=== PATIENT | male | born 1940 | race Caucasian/White ===

== ENCOUNTER 2020-05-29 11:51 | Inpatient (IN) | payer OTHER, MEDICARE ==
--- OUTSIDE RECORDS SUMMARY | 2020-05-29 11:53 | XMS REPORT | Summary of Care ---
:1940 Author Organization [facility] Neurology [place] Address [address] [place] [address]- Encounter HQ Nadiya(FIN) [id number] Date(s): 04/08/20 - 04/08/20 [facility] [address] [place] [address]- [phone] Discharge Disposition: Home or Self Care Attending Physician: Adolfo Norman MD Referring Physician: Venancio Rowe MD Vital Signs Most recent to oldest [Reference Range]: 1 Height 182.88 cm (04/08/20 10:25 AM) Temperature Oral [96.4-99.1 DegF] 97.1 DegF (04/08/20 10:25 AM) Blood Pressure [90-140/60-90 mmHg] 124/69 mmHg (04/08/20 10:25 AM) Respiratory Rate [14-20 BRMIN] 16 BRMIN (04/08/20 10:25 AM) Peripheral Pulse Rate [60-100 bpm] 50 bpm *LOW* (04/08/20 10:25 AM) Weight 94.545 kg (04/08/20 10:25 AM) Body Mass Index 28.27 m2 (04/08/20 10:25 AM) Problem List Condition Effective Dates Status Health Status Informant Dystonic tremor(Confirmed) Active Essential tremor(Confirmed) 03/30/15 Active HTN - Hypertension(Confirmed) Active Hyperlipidemia(Confirmed) Active Hypothyroidism(Confirmed) Active MCI (mild cognitive Active impairment)(Confirmed) Allergies, Adverse Reactions, Alerts Substance Reaction Severity Status iodine Moderate Active Medications No Known Medications Results No data available for this section Immunizations No data available for this section Procedures No data available for this section Social History Social History Type Response Smoking Status Former smoker; Type: Cigaret mari; 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
--- OUTSIDE RECORDS SUMMARY | 2020-05-29 11:53 | XMS REPORT | Continuity of Care Document ---
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, systemic N euro arterial (disorder) Hyperlipidemia Active Problem 05/23/2020 Misc her (disorder) Neuro Hypothyroidism Active Problem 05/23/2020 Misc her (disorder) Neuro Impaired cognition Active Problem 05/23/2020 [facility]ischer (finding) Neuro Medications Medication Details Route Status Patient Ordering Order Source Instructions Provider Date Donepezil 5 mg = 1 Active [facility] hydrochloride 5 tab, PO, 020 Neuro MG Oral Tablet Bedtime, # [Aricept] 30 tab, 3 Refill(s) primidone 50 mg 25 mg = Active [facility] oral tablet 0.5 tab, 019 Neuro PO, BID, # 90 tab, 0 Refill(s), Pharmacy: [id number] Allergies, Adverse Reactions, Alerts Substance Category Reaction Severity Reaction Status Date Comments S ource type Reported iodine Assertion Moderate Drug Active Misch er allergy Neuro Immunizations No Data Provided for This Section Results No Data Provided for This Section Pathology Reports No Data Provided for This Section Diagnostic Reports No Data Provided for This Section Consultation Notes No Data Provided for This Section Discharge Summaries No Data Provided for This Section History and Physicals No Data Provided for This Section Vital Signs Vital Sign Value Date Comments Source Systolic (mm Hg) 138 05/20/2020 [facility] Diastolic (mm Hg) 72 05/20/2020 [facility] Heart Rate 52 05/20/2020 [facility] Respitory Rate 16 05/20/2020 [facility] Height 177.8 cm 05/20/2020 [facility] Weight 94.545 05/20/2020 [facility] BMI Calculated 29.91 05/20/2020 [facility] Systolic (mm Hg) 124 04/08/2020 [facility] Diastolic (mm Hg) 69 04/08/2020 [facility] Heart Rate 50 04/08/2020 [facility] Respitory Rate 16 04/08/2020 [facility] Temperature Oral (F) 97.1 F 04/08/2020 [facility] Height 182.88 cm 04/08/2020 [facility] Weight 94.545 04/08/2020 [facility] BMI Calculated 28.27 04/08/2020 [facility] Systolic (mm Hg) 116 04/10/2019 [facility] Diastolic (mm Hg) 64 04/10/2019 [facility] Heart Rate 55 04/10/2019 [facility] Respitory Rate 16 04/10/2019 [facility] Height 177.8 cm 04/10/2019 [facility] Weight 88.636 04/10/2019 [facility] BMI Calculated 28.04 04/10/2019 [facility] Encounters Location Location Encounter Encounter Reason Attending ADM MT Stat us Source Details Type Number For Provider Date Date Visit Outpatient [id number] YADIRA 04/09 Active [facility] Outside [id number] 07/19 07/21 [facility] Medical /2018 Neuro [place] Records Outpatient [id number] Yadira 04/10 Active [facility] [place] [facility] Outpatient [id number] Yadira 04/10 04/11 [facility] [place] /2018 Neuro [place] Outpatient [id number] Yadira 04/08 Active [facility] Outpatient [id number] Yadira 04/08 Active [facility] [place] [facility] Ambulatory [id number] Venancio 04/08 04/08 [facility] Pre-Reg [place] /2019 Neuro [place] [facility] Outpatient [id number] Venancio 04/08 04/09 [facility] [place] /2019 Neuro [place] Outpatient [id number] Yadira 05/20 Active [facility] Outpatient [id number] Yadira 05/20 05/21 [facility] [place] /2019 Neuro [place] Outpatient [id number] Yadira 08/19 Active [facility] Procedures No Data Provided for This Section Assessment and Plan No Data Provided for This Section Plan of Care No Data Provided for This Section Social History Social History Date Source Social History TypeResponse 05/20/2020 [facility] Smoking Status Former smoker; Type: Cigarettes; Exposur e to Tobacco Smoke None; Cigarette Smoking Last 365 Days No; Reg Smoking Cessation Counseling No1 entered on: 05/20/20 Flynn moreno 40yrs ago Family History No Data Provided for This Section Advance Directives No Data Provided for This Section Functional Status No Data Provided for This Section
--- OUTSIDE RECORDS SUMMARY | 2020-05-29 11:54 | XMS REPORT | Summary of Care ---
:1940 Author Organization [facility] Neurology [place] Address [address] [place] [address]- Encounter HQ Nadiya(FIN) [id number] Date(s): 05/20/20 - 05/20/20 [facility] [address] [place] [address]- [phone] Discharge Disposition: Home or Self Care Attending Physician: Adolfo Norman MD Referring Physician: Adolfo Norman MD Vital Signs Most recent to oldest [Reference Range]: 1 Height 177.8 cm (05/20/20 1:32 PM) Blood Pressure [90-140/60-90 mmHg] 138/72 mmHg (05/20/20 1:32 PM) Respiratory Rate [14-20 BRMIN] 16 BRMIN (05/20/20 1:32 PM) Peripheral Pulse Rate [60-100 bpm] 52 bpm *LOW* (05/20/20 1:32 PM) Weight 94.545 kg (05/20/20 1:32 PM) Body Mass Index 29.91 m2 (05/20/20 1:32 PM) Problem List Condition Effective Dates Status Health Status Informant Dystonic tremor(Confirmed) Active Essential tremor(Confirmed) 03/30/15 Active HTN - Hypertension(Confirmed) Active Hyperlipidemia(Confirmed) Active Hypothyroidism(Confirmed) Active MCI (mild cognitive Active impairment)(Confirmed) Allergies, Adverse Reactions, Alerts Substance Reaction Severity Status iodine Moderate Active Medications Aricept 5 mg oral tablet 5 mg = 1 tab, PO, Bedtime, # 30 tab, 3 Refill(s) Start Date: 05/20/20 Stop Date: 09/17/20 Status: Ordered Results No data available for this section Immunizations No data available for this section Procedures No data available for this section Social History Social History Type Response Smoking Status Former smoker; Type: Cigaret mari; 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
[2020-05-29 12:43] LABS: Absolute Lymphocytes (CBC) 1.6 K/uL (0.7-4.9); Basophils % 0.9 % (0-1.3); Hematocrit 41.3 % (39.6-49.0); Lymphocytes % 31.2 % (15.3-44.8); MPV 9.1 fL (7.6-11.3); RBC Red Blood Cell Count 4.32 M/uL (4.33-5.43)
[2020-05-29 12:45] LABS: Protime INR 0.97
[2020-05-29 13:00] LABS: BUN Blood Urea Nitrogen 16 mg/dL (7-18); Bicarbonate 29 mmol/L (21-32); Glucose Level 110 mg/dL (74-106); NT PRO-BNP 183 pg/mL (<450); Potassium 4.4 mmol/L (3.5-5.1); Sodium Level 142 mmol/L (136-145); Troponin (Emerg Dept Use Only) < 0.02 ng/mL (0.0-0.045)
--- NOTE | 2020-05-29 13:29 | RAD REPORT ---
EXAM DESCRIPTION: Peter Single View05/29/2020 12:52 pm CLINICAL HISTORY: Chest pain COMPARISON: 2015 FINDINGS: The lungs appear clear of acute infiltrate. The heart is normal size IMPRESSION: No acute abnormalities displayed
[2020-05-29] MEDS ORDERED: ASPIRIN 81 MG CHEWABLE TABLET ONE (14:05)
--- NOTE | 2020-05-29 14:18 | EDPHYS ---
Physician Documentation [facility] Name: Porfirio Ospina Age: 79 yrs Sex: Male : 1940 Arrival Date: 05/29/2020 Time: 11:52 Bed 7 Private MD: Venancio Rowe ED Physician Rigo Neely HPI: 05/29 14:03 This 79 yrs old Male presents to ER via Ambulatory with complaints of Chest rn Pain, Chest Pressure. 14:03 The patient or guardian reports chest pain that is located primarily in the substernal rn area. Onset: this morning. The pain does not radiate. Associated signs and symptoms: Pertinent positives: None. Pertinent negatives: abdominal pain, cough, diaphoresis, dizziness, lower extremity swelling, lightheadedness, nausea, near syncope, palpitations, recent travel, shortness of breath, syncope, vomiting. The chest pain is described as a heaviness, a pressure. Duration: The patient or guardian reports multiple episodes, that have now resolved. Modifying factors: The symptoms are alleviated by nothing. the symptoms are aggravated by nothing. Severity of pain: At its worst the pain was moderate in the emergency department the pain has resolved. It is unknown whether or not the patient has had similar symptoms in the past. Reports chest pain, 2 episodes, began early this morning, lasts approx 10-15 min, went away on its own, then came back for another 10 min. NO fever/cough/sob/abd pain/hemoptysis. . Historical: - Allergies: 12:03 Iodine; iw 12:03 tramadol; iw - Home Meds: 12:03 lisinopril 20 mg Oral tab 1 tab once daily [Active]; allopurinol 300 mg Oral tab 1 tab iw once daily [Active]; clopidogrel 75 mg oral tab 1 tab once daily [Active]; metoprolol tartrate 25 mg Oral tab 1 tab once daily [Active]; escitalopram oxalate 10 mg oral tab 1 tab once daily [Active]; levothyroxine 112 mcg tab 1 tab once daily [Active]; primidone 50 mg Oral tab [Active]; atorvastatin 40 mg oral tab 1 tab once daily [Active]; aspirin 81 mg Oral TbEC 1 tab once daily [Active]; donepezil 5 mg oral TbDL 1 tab once daily [Active]; - PMHx: 12:03 Myocardial infarction; iw - PSHx: 12:03 Heart stents; Hernia repair; iw - Immunization history:: Adult Immunizations up to date. - Social history:: Smoking status: Patient/guardian denies using tobacco, but has a distant history of tobacco abuse. - Family history:: not pertinent. - Hospitalizations: : No recent hospitalization is reported. ROS: 14:03 Constitutional: Negative for fever, chills, and weight loss, Eyes: Negative for injury, rn pain, redness, and discharge, Neck: Negative for injury, pain, and swelling, Cardiovascular: Negative for palpitations, and edema, Respiratory: Negative for shortness of breath, cough, wheezing, and pleuritic chest pain, Abdomen/GI: Negative for abdominal pain, nausea, vomiting, diarrhea, and constipation, Back: Negative for injury and pain, : Negative for injury, bleeding, discharge, and swelling, MS/Extremity: Negative for injury and deformity, Skin: Negative for injury, rash, and discoloration, Neuro: Negative for headache, weakness, numbness, tingling, and seizure. Exam: 14:03 Constitutional: This is a well developed, well nourished patient who is awake, alert, rn and in no acute distress. Head/Face: Normocephalic, atraumatic. Cardiovascular: Bradycardic, Regular rhythm. No pulse deficits. Respiratory: Speaking full sentences, unlabored. Abdomen/GI: soft, non-tender Skin: Warm, dry MS/ Extremity: Pulses equal, no cyanosis. Neurovascular intact. Full, normal range of motion. Equal circumference. Neuro: Awake and alert, GCS 15 Vital Signs: 11:58 BP 152 / 91; Pulse 56; Resp 16; Temp 98.1; Pulse Ox 98% on R/A; Weight 92.99 kg; Height iw 5 ft. 11 in. (180.34 cm); 12:38 BP 134 / 77; Pulse 66; Resp 17 S; Pulse Ox 100% on R/A; jd3 13:38 BP 127 / 74; Pulse 52; Resp 19 S; Pulse Ox 98% on R/A; jd3 14:15 BP 159 / 77; Pulse 62; Resp 13; Pulse Ox 96% ; bp 16:14 BP 121 / 70; Pulse 62; Resp 17; Pulse Ox 99% ; rb3 11:58 Body Mass Index 28.59 (92.99 kg, 180.34 cm) iw MDM: 12:16 Patient medically screened. rn 14:14 Differential diagnosis: abnormal EKG, acute myocardial infarction, coronary artery rn disease costochondritis, esophagitis, gastritis, gastroesophageal reflux disease (GERD), pleurisy, pneumonia, pneumothorax, stable angina, unstable angina. The patient was given aspirin in the Emergency Department. Data reviewed: vital signs, nurses notes, lab test result(s), EKG, radiologic studies, plain films, and as a result, I will admit patient. Counseling: I had a detailed discussion with the patient and/or guardian regarding: the historical points, exam findings, and any diagnostic results supporting the discharge/admit diagnosis, lab results, radiology results, the need for further work-up and treatment in the hospital. Response to treatment: the patient's symptoms have resolved after treatment, the patient's condition has returned to base line, and as a result, I will admit patient. Admission orders: after a detailed discussion of the patient's condition and case, the admit orders are written by me. Special discussion:. ED course: Consulted with Dr. Davis, will consult when admitted. Admitted to Dr. Malave. . 05/29 12:27 Order name: Basic Metabolic Panel; Complete Time: 13:10 rn 05/29 12:27 Order name: CBC with Diff; Complete Time: 13:10 rn 05/29 12:27 Order name: NT PRO-BNP; Complete Time: 13:10 rn 05/29 12:27 Order name: PT-INR; Complete Time: 13:10 rn 05/29 12:27 Order name: Troponin (emerg Dept Use Only); Complete Time: 13:10 rn 05/29 12:27 Order name: XRAY Chest (1 view); Complete Time: 13:30 rn 05/29 12:27 Order name: EKG; Complete Time: 12:27 rn 05/29 12:27 Order name: Cardiac monitoring; Complete Time: 12:37 rn 05/29 12:27 Order name: EKG - Nurse/Tech; Complete Time: 12:38 rn 05/29 12:27 Order name: IV Saline Lock; Complete Time: 12:38 rn 05/29 12:27 Order name: Labs collected and sent; Complete Time: 12:38 rn 05/29 12:27 Order name: O2 Per Protocol; Complete Time: 12:38 rn 05/29 12:27 Order name: O2 Sat Monitoring; Complete Time: 12:38 rn Administered Medications: 13:55 Drug: Aspirin Chewable Tablet 324 mg Route: PO; jd3 Disposition: 05/29/20 14:17 Hospitalization ordered by Eze Malave for Observation. Preliminary diagnosis is Chest pain, unspecified. - Bed requested for Telemetry/MedSurg (observation). - Status is Observation. bp - Condition is Stable. - Problem is new. - Symptoms have improved. Signatures: Dispatcher [employer] EDMS Marie Diop RN RN iw Nieto, Roman, MD MD rn Davies, Jonathon, RN RN jd3 Aguilar, Jose, RN RN ja1 Peltier, Brian RN RN bp Corrections: (The following items were deleted from the chart) 14:12 14:03 Constitutional: Negative for fever, chills, and weight loss, Eyes: Negative for rn injury, pain, redness, and discharge, Neck: Negative for injury, pain, and swelling, Cardiovascular: Negative for palpitations, and edema, Respiratory: Negative for shortness of breath, cough, wheezing, and pleuritic chest pain, Abdomen/GI: Negative for abdominal pain, nausea, vomiting, diarrhea, and constipation, Back: Negative for injury and pain, : Negative for injury, bleeding, discharge, and swelling, MS/Extremity: Negative for injury and deformity, Skin: Negative for injury, rash, and discoloration, Neuro: Negative for headache, weakness, numbness, tingling, and seizure, rn 15:36 14:17 Hospitalization Ordered by Eze Malave DO for Observation. Preliminary ja1 diagnosis is Chest pain, unspecified. Bed requested for Telemetry/MedSurg (observation). Status is Observation. Condition is Stable. Problem is new. Symptoms have improved. rn 17:38 15:36 05/29/2020 14:17 Hospitalization Ordered by Eze Malave DO for Observation. bp Preliminary diagnosis is Chest pain, unspecified. Bed requested for Telemetry/MedSurg (observation). Status is Observation. Condition is Stable. Problem is new. Symptoms have improved. ja1
--- NOTE | 2020-05-29 14:18 | ER ---
Nurse's Notes [facility] Name: Porfirio Ospina Age: 79 yrs Sex: Male : 1940 Arrival Date: 05/29/2020 Time: 11:52 Bed 7 Private MD: Venancio Rowe Diagnosis: Chest pain, unspecified Presentation: 05/29 11:58 Chief complaint: Patient states: chest pressure started at 0630 this morning , iw intermittent, lasts approx 10 minutes. Coronavirus screen: At this time, the client does not indicate any symptoms associated with coronavirus-19. Ebola Screen: Patient negative for fever greater than or equal to 101.5 degrees Fahrenheit, and additional compatible Ebola Virus Disease symptoms Patient denies exposure to infectious person. Patient denies travel to an Ebola-affected area in the 21 days before illness onset. No symptoms or risks identified at this time. Initial Sepsis Screen: Does the patient meet any 2 criteria? No. Patient's initial sepsis screen is negative. Does the patient have a suspected source of infection? No. Patient's initial sepsis screen is negative. Risk Assessment: Do you want to hurt yourself or someone else? Patient reports no desire to harm self or others. Onset of symptoms was May 29, 2020. 11:58 Method Of Arrival: Ambulatory iw 11:58 Acuity: DAMON 3 iw Historical: - Allergies: 12:03 Iodine; iw 12:03 tramadol; iw - Home Meds: 12:03 lisinopril 20 mg Oral tab 1 tab once daily [Active]; allopurinol 300 mg Oral tab 1 tab iw once daily [Active]; clopidogrel 75 mg oral tab 1 tab once daily [Active]; metoprolol tartrate 25 mg Oral tab 1 tab once daily [Active]; escitalopram oxalate 10 mg oral tab 1 tab once daily [Active]; levothyroxine 112 mcg tab 1 tab once daily [Active]; primidone 50 mg Oral tab [Active]; atorvastatin 40 mg oral tab 1 tab once daily [Active]; aspirin 81 mg Oral TbEC 1 tab once daily [Active]; donepezil 5 mg oral TbDL 1 tab once daily [Active]; - PMHx: 12:03 Myocardial infarction; iw - PSHx: 12:03 Heart stents; Hernia repair; iw - Immunization history:: Adult Immunizations up to date. - Social history:: Smoking status: Patient/guardian denies using tobacco, but has a distant history of tobacco abuse. - Family history:: not pertinent. - Hospitalizations: : No recent hospitalization is reported. Screenin:15 Abuse screen: Denies threats or abuse. Nutritional screening: No deficits noted. jd3 Tuberculosis screening: No symptoms or risk factors identified. Fall Risk Ambulatory Aid- None/Bed Rest/Nurse Assist (0 pts). Gait- Normal/Bed Rest/Wheelchair (0 pts) Mental Status- Oriented to own ability (0 pts). Total Jose Fall Scale indicates No Risk (0-24 pts). Assessment: 12:14 General: Appears in no apparent distress. uncomfortable, Behavior is calm, cooperative, jd3 appropriate for age. Pain: Complains of pain in chest Pain does not radiate. Quality of pain is described as pressure, Pain began suddenly. Neuro: Level of Consciousness is awake, alert, obeys commands, Oriented to person, place, time, situation. Cardiovascular: Reports chest pain, Capillary refill < 3 seconds Patient's skin is warm and dry. Rhythm is irregular. Respiratory: Airway is patent Respiratory effort is even, unlabored, Respiratory pattern is regular, symmetrical, Denies cough, shortness of breath. GI: No signs and/or symptoms were reported involving the gastrointestinal system. : No signs and/or symptoms were reported regarding the genitourinary system. EENT: No signs and/or symptoms were reported regarding the EENT system. Derm: Skin is intact, Skin is dry, Skin is normal, Skin temperature is warm. Musculoskeletal: Circulation, motion, and sensation intact. Range of motion: intact in all extremities. 12:38 Reassessment: Patient appears in no apparent distress at this time. No changes from jd3 previously documented assessment. Patient and/or family updated on plan of care and expected duration. Pain level reassessed. Patient is alert, oriented x 3, equal unlabored respirations, skin warm/dry/pink. 13:38 Reassessment: Patient appears in no apparent distress at this time. No changes from jd3 previously documented assessment. Patient and/or family updated on plan of care and expected duration. Pain level reassessed. Patient is alert, oriented x 3, equal unlabored respirations, skin warm/dry/pink. 14:15 Reassessment: Patient appears in no apparent distress at this time. Patient and/or bp family updated on plan of care and expected duration. Pain level reassessed. Patient is alert, oriented x 3, equal unlabored respirations, skin warm/dry/pink. RECD REPORT FROM SANDRINE BAKER. PT TBA FOR CHEST PAIN. 14:26 Reassessment: DR VALENCIA AT B/S FOR ADMIT. bp 16:16 Reassessment: Tried to call report, unable to give report at this time because dariana Medel RN is discharging another pt. Vital Signs: 11:58 BP 152 / 91; Pulse 56; Resp 16; Temp 98.1; Pulse Ox 98% on R/A; Weight 92.99 kg; Height iw 5 ft. 11 in. (180.34 cm); 12:38 BP 134 / 77; Pulse 66; Resp 17 S; Pulse Ox 100% on R/A; jd3 13:38 BP 127 / 74; Pulse 52; Resp 19 S; Pulse Ox 98% on R/A; jd3 14:15 BP 159 / 77; Pulse 62; Resp 13; Pulse Ox 96% ; bp 16:14 BP 121 / 70; Pulse 62; Resp 17; Pulse Ox 99% ; rb3 11:58 Body Mass Index 28.59 (92.99 kg, 180.34 cm) iw ED Course: 11:52 Patient arrived in ED. ag5 11:52 Venancio Rowe MD is Private Physician. ag5 12:00 Triage completed. iw 12:04 Simeon Reis, RN is Primary Nurse. jd3 12:13 Arm band placed on. jd3 12:13 EKG done, by ED staff, reviewed by Rigo Neely MD. Patient maintains SpO2 saturation jd3 greater than 95% on room air. 12:16 Rigo Neely MD is Attending Physician. rn 12:16 Patient has correct armband on for positive identification. Placed in gown. Bed in low jd3 position. Call light in reach. Side rails up X 1. Adult w/ patient. conveyor monitor on. Pulse ox on. NIBP on. 12:22 ED physician to see patient. jd3 12:38 Inserted saline lock: 20 gauge in right antecubital area, using aseptic technique. jd3 Blood collected. 12:48 XRAY Chest (1 view) In Process Unspecified. EDMS 13:38 ED physician to see patient. jd3 13:55 Warm blanket given. Diet tray given. PO fluids given. jd3 14:17 Eze Valencia DO is Hospitalizing Provider. rn 14:22 Report given to Venancio BAKER. jd3 17:37 No provider procedures requiring assistance completed. Patient admitted, IV remains in bp place. Administered Medications: 13:55 Drug: Aspirin Chewable Tablet 324 mg Route: PO; jd3 Outcome: 14:17 Decision to Hospitalize by Provider. rn 17:15 Admitted to Med/surg accompanied by tech, via wheelchair, with chart, Report called to bp ILIANA BAKER 17:15 Condition: stable bp 17:15 Instructed on the need for admit. 17:38 Patient left the ED. bp Signatures: Dispatcher [employer] EDMarie Coppola, RN OLIVIA iw Rigo Neely MD MD rn Davies, Jonathon, RN RN jVenancio Atkins RN RN bp Gaskin, Ajare ag5 Chelsea Lewis, RN RN rb3 Corrections: (The following items were deleted from the chart) 12:38 12:14 Pain: Complains of pain in chest Pain does not radiate. Pain began suddenly, jd3 jd3 14:23 14:00 Reassessment: Patient appears in no apparent distress at this time. Patient bp and/or family updated on plan of care and expected duration. Pain level reassessed. Patient is alert, oriented x 3, equal unlabored respirations, skin warm/dry/pink. RECD REPORT FROM SANDRINE BAKER. PT TBA FOR CHEST PAIN bp 14:23 14:00 BP 159 / 77; Pulse 62bpm; Resp 13bpm; Pulse Ox 96%; bp bp
--- NOTE | 2020-05-29 15:44 | P.HP ---
Certification for Inpatient Patient admitted to: Observation With expected LOS: <2 Midnights Patient will require the following post-hospital care: None Practitioner: I am a practitioner with admitting privileges, knowledge of patient current condition, hospital course, and medical plan of care. Services: Services provided to patient in accordance with Admission requirements found in Title 42 Section 412.3 of the Code of Federal Regulations Patient History Date of Service: 05/29/20 Primary Care Provider: Dr. Rowe; Cardiology-Dr. Davis Reason for admission: Chest pain, shortness of breath History of Present Illness: 79-year-old male with history of CAD, hypertension, hypothyroidism, hyperlipidemia and dementia. Patient presented to the emergency room with chest pain. Chest pain occurred twice this morning. Each lasted several min. It was mainly to the substernal region. He describes the chest pain more of a pressure-like sensation. No radiation pain noted. He had some shortness of breath. He came to the ER for further evaluation. In the ER patient evaluated. No significant ST changes noted. CBC unremarkable. Sodium 142, potassium 4.4. BUN is 16, GFR 64. Glucose 110. Troponin unremarkable. Due to his multiple risk factors the patient was admitted for further evaluation and treatment. When I saw the patient ER, he appeared stable. Patient denies any tobacco history. Drinks on occasion. Allergies iodine Allergy (Unknown, Verified 01/31/16 10:29) swelling to throat tramadol Allergy (Unverified 09/14/17 15:00) Unknown Home medications list reviewed: Yes Home Medications: Amlodipine [Norvasc] 5 mg PO DAILY 07/25/15 Aspirin Chewable [Aspirin Chewable*] 81 mg PO DAILY 07/25/15 Atorvastatin Calcium [Lipitor] 40 mg PO DAILY 07/25/15 Clopidogrel Bisulfate [Plavix] 75 mg PO DAILY 07/25/15 Folic Acid 1 mg PO DAILY 07/25/15 Latanoprost Ophth [Xalatan 0.005% Ophth [place]] 25 drops OPTH DAILY 07/25/15 Levothyroxine [Synthroid] 112 mcg PO [id number] 07/25/15 Metoprolol Tartrate [Lopressor] 25 mg PO DAILY 07/25/15 [place]-3 Fatty Acids [Fish Oil] 500 mg PO DAILY 07/25/15 Primidone [Mysoline] 50 mg PO BID 07/25/15 Timolol Maleate [Istalol] 1 drop EACH EYE DAILY 07/25/15 Ubidecarenone [Co Q-10] 100 mg PO DAILY 07/25/15 allopurinoL [Zyloprim] 300 mg PO DAILY 07/25/15 lisinopriL [Prinivil] 20 mg PO DAILY 07/25/15 - Past Medical/Surgical History Diabetic: No -: CAD with prior stents -: HTN -: Hyperlipidemia -: Hypothyroidism -: Dementia -: Stents -: Hernia Repair Psychosocial/ Personal History: Patient is - Family History Family History: Reviewed- Non-Contributory - Social History Smoking Status: Never smoker Alcohol use: Yes CD- Drugs: No Caffeine use: Yes Place of Residence: Home Review of Systems General: As per HPI Eyes: Unremarkable ENT: Unremarkable Respiratory: Shortness of Breath, As per HPI Cardiovascular: Chest Pain, As per HPI Gastrointestinal: Unremarkable Genitourinary: Unremarkable Musculoskeletal: Unremarkable Integumentary: Unremarkable Neurological: Unremarkable Lymphatics: Unremarkable Physical Examination - Physical Exam General: Alert, In no apparent distress, Oriented x3, Cooperative HEENT: Atraumatic, Normocephalic, Mucous membr. moist/pink Neck: Supple Respiratory: Clear to auscultation bilaterally, Normal air movement Cardiovascular: Normal pulses, Regular rate/rhythm Gastrointestinal: Normal bowel sounds, Soft and benign, Non-distended, No tenderness, No masses, No rebound, No guarding Musculoskeletal: No erythema, No tenderness, No warmth Integumentary: No tenderness/swelling, No erythema, No warmth, No cyanosis Neurological: Normal speech, Normal strength at 5/5 x4 extr, Normal tone, Normal affect - Studies Laboratory Data (last 24 hrs) 05/29/20 12:34: PT 11.4, INR 0.97 05/29/20 12:34: WBC 5.0, Hgb 13.6, Hct 41.3, Plt Count 188 05/29/20 12:34: Sodium 142, Potassium 4.4, BUN 16, Creatinine 1.10, Glucose 110 H Assessment and Plan - Plan Impression: Chest pain with shortness of breath with history of CAD and prior stents Hypertension Hypothyroidism Hyperlipidemia Dementia Depression with anxiety Plan: Chest pain with shortness of breath with history of CAD and prior stents: Patient will be admitted for further evaluation and treatment. Continue telemetry and monitor cardiac enzymes. Cardiology consulted to further evaluate. Patient has seen Cardiology as an outpatient. Continue aspirin, Plavix, statin and blood pressure medication. Will provide Lovenox for DVT prophylaxis. Await further recommendations from cardiology. Anticipate improvement and possible discharge tomorrow if workup unremarkable. Hypertension: Continue lisinopril. Will monitor and adjust appropriately. Hypothyroidism: Restart home medication. Will check tsh and free T4. Hyperlipidemia: Restart home medication. Check fasting lipid panel. Dementia: Restart home medication. Depression with anxiety: Restart home medication. Discharge Plan: Home Plan to discharge in: 24 Hours - Advance Directives Does patient have a Living Will: Yes Does patient have a Durable POA for Healthcare: Yes - Code Status/Comfort Care Code Status Assessed: Yes (Patient full code) Time Spent Managing Pts Care (In Minutes): 55
[2020-05-29] MEDS ORDERED: ONDANSETRON 4 MG/2 ML VIAL IV PRN (17:12)
[2020-05-29 17:55] VITALS: BMI 28.5
[2020-05-29 19:52] LABS: CKMB Creatine Kinase MB 1.9 ng/mL (0.3-3.6); Creatine Phosphokinase 178 U/L (39-308); Troponin I < 0.02 ng/mL (0.0-0.045)
[2020-05-29] MEDS: ATORVASTATIN 40 MG TAB PO SCH (21:36)
[2020-05-29] MEDS: DONEPEZIL HCL 5 MG TAB PO SCH (21:37)
[2020-05-30 04:21] LABS: CKMB Creatine Kinase MB 1.4 ng/mL (0.3-3.6); Creatine Phosphokinase 151 U/L (39-308); Troponin I < 0.02 ng/mL (0.0-0.045)
[2020-05-30] MEDS: METOPROLOL TAR 25 MG TAB PO SCH (05:37)
[2020-05-30] MEDS: LEVOTHYROXINE SOD 0.112 MG TAB PO SCH (05:38)
[2020-05-30 06:35] LABS: Magnesium 2.2 mg/dL (1.8-2.4); Thyroid Stimulating Hormone 2.63 uIU/mL (0.360-3.740)
--- NOTE | 2020-05-30 07:42 | EKG ---
Test Date: 2020-05-29 Test Time: 12:09:42 Linen Room Houseperson: LU MEASUREMENT RESULTS: Intervals: Rate: 54 IA: 198 QRSD: 96 QT: 422 QTc: 400 [place]: P: 35 IA: 198 QRS: -18 T: 21 INTERPRETIVE STATEMENTS: Sinus bradycardia with premature atrial complexes Cannot rule out Anterior infarct, age undetermined Abnormal ECG Compared to ECG 12/24/2015 16:47:01 Atrial premature complex(es) now present Myocardial infarct finding now present Electronically Signed On 05-30-20 07:40:39 [facility] by Daniel Davis
--- NOTE | 2020-05-30 08:54 | P.PN ---
Subjective Date of Service: 05/30/20 Primary Care Provider: Dr. Rowe; Cardiology-Dr. Davis Chief Complaint: Chest pain, shortness of breath Subjective: Other (Patient improved. Chest pain also improved. Patient with dementia.) Physical Examination - Vital Signs Temperature: 97.5 F Blood Pressure: 131/64 Pulse: 58 Respirations: 16 Pulse Ox (%): 98 - Physical Exam General: Alert, In no apparent distress, Disheveled HEENT: Atraumatic Neck: Supple Respiratory: Clear to auscultation bilaterally, Normal air movement Cardiovascular: Normal pulses, Regular rate/rhythm Gastrointestinal: Normal bowel sounds, Soft and benign, Non-distended, No tenderness, No masses, No rebound, No guarding Musculoskeletal: No erythema, No tenderness, No warmth Integumentary: No tenderness/swelling, No erythema, No warmth, No cyanosis Neurological: Normal speech, Normal strength at 5/5 x4 extr, Normal tone, Dementia - Studies Laboratory Data (last 24 hrs) 05/29/20 12:34: PT 11.4, INR 0.97 05/29/20 12:34: WBC 5.0, Hgb 13.6, Hct 41.3, Plt Count 188 05/29/20 12:34: Sodium 142, Potassium 4.4, BUN 16, Creatinine 1.10, Glucose 110 H Medications List Reviewed: Yes Assessment & Plan Discharge Plan: Home Plan to discharge in: 24 Hours Physician Review Additional Text: Impression: Chest pain with shortness of breath secondary to unstable angina complicated with history of CAD and prior stents Hypertension Hypothyroidism Hyperlipidemia Dementia Depression with anxiety Plan: Chest pain with shortness of breath secondary to unstable angina complicated with history of CAD and prior stents: Case discussed in detail with cardiology. Due to his dementia it is difficult to get an accurate history. Cardiology believes chest pain related to unstable angina. Previous records reviewed. Cardiology desires heart catheterization to further evaluate and assess especially with his significant CAD history and prior stents. Continue to monitor closely. Continue aspirin, Plavix, statin medication and blood pressure medication control. Will keep the patient NPO after midnight in preparation for heart catheterization tomorrow. Will discuss with family. Continue DVT prophylaxis-Lovenox. I will turn the service over to the hospitalist team tomorrow. I will go over the plan of care with him. Hypertension: Continue with medication. Will monitor and adjust appropriately. Hypothyroidism: Continue medication. Tsh within normal range. Hyperlipidemia: Continue medication. LDL 27. Dementia: Continue medication. Depression with anxiety: Continue medication Time Spent Managing Pts Care (In Minutes): 55
[2020-05-30] MEDS ORDERED: ENOXAPARIN 40 MG/0.4 ML SQ SCH (09:00)
[2020-05-30] MEDS: COENZYME Q10- 200 MG CAP PO SCH (09:09)
[2020-05-30] MEDS: CLOPIDOGREL 75 MG TABLET PO SCH (09:10)
[2020-05-30] MEDS: PRIMIDONE 50 MG TAB PO SCH (09:10)
[2020-05-30] MEDS: allopurinoL 300 MG TAB PO SCH (09:10)
[2020-05-30] MEDS: FOLIC ACID 1 MG TABLET PO SCH (09:10)
[2020-05-30] MEDS: ESCITALOPRAM 20 MG TAB PO SCH (09:10)
[2020-05-30] MEDS: lisinopriL 20 MG TAB PO SCH (09:10)
[2020-05-30] MEDS: ASPIRIN EC 81 MG TAB PO SCH (09:10)
[2020-05-30] MEDS: ASCORBIC ACID 500 MG TABLET PO SCH (09:11)
[2020-05-30] MEDS: CYANOCOBALAMIN 1,000 MCG TAB PO SCH (09:11)
[2020-05-30] MEDS: ACETAMINOPHEN 500 MG TAB PO PRN ×2 (15:53→21:54)
[2020-05-30] MEDS ORDERED: predniSONE 20 MG TAB PO ONE (18:00)
[2020-05-30] MEDS: DONEPEZIL HCL 5 MG TAB PO SCH (21:52)
[2020-05-30] MEDS: ATORVASTATIN 40 MG TAB PO SCH (21:53)
[2020-05-31] MEDS: lisinopriL 20 MG TAB PO SCH ×2 (05:41)
[2020-05-31] MEDS: LEVOTHYROXINE SOD 0.112 MG TAB PO SCH (05:42)
[2020-05-31] MEDS: CLOPIDOGREL 75 MG TABLET PO SCH (05:42)
[2020-05-31] MEDS: METOPROLOL TAR 25 MG TAB PO SCH (05:45)
[2020-05-31] MEDS ORDERED: predniSONE 20 MG TAB PO ONE (06:00)
[2020-05-31] MEDS ORDERED: NA CHLORIDE 0.9% 500 ML IV SCH (06:00)
[2020-05-31] MEDS ORDERED: NA CHLORIDE 0.9% 500 ML ONE (06:12)
[2020-05-31] MEDS: ASPIRIN EC 81 MG TAB PO SCH (08:06)
[2020-05-31] MEDS: ASCORBIC ACID 500 MG TABLET PO SCH (08:07)
[2020-05-31] MEDS: PRIMIDONE 50 MG TAB PO SCH (08:07)
[2020-05-31] MEDS: ESCITALOPRAM 20 MG TAB PO SCH (08:07)
[2020-05-31] MEDS: CYANOCOBALAMIN 1,000 MCG TAB PO SCH (08:07)
[2020-05-31] MEDS: COENZYME Q10- 200 MG CAP PO SCH (08:07)
[2020-05-31] MEDS: allopurinoL 300 MG TAB PO SCH (08:07)
[2020-05-31] MEDS: FOLIC ACID 1 MG TABLET PO SCH (08:07)
--- NOTE | 2020-05-31 09:23 | PN ---
Date of Progress Note: 05/31/2020 Mr. Ospina has came in with stable anginal symptoms. He has a history of LAD stent in 2014. He has hypertension, dyslipidemia, and hypothyroidism. His blood pressure and cholesterol are well controll ed. He is on appropriate therapy with aspirin, Lipitor, Plavix, and metoprolol. He is also on Loven ox. Prednisone 50 mg were ordered x2 the night before in the morning after catheterization, which wa s planned for tomorrow, 05/31/2020. The patient has not had any further chest pain since he was seen . Troponin remained negative. KANG/MODL Voice ID: [id number] Report ID: [id number]
--- NOTE | 2020-05-31 09:45 | CON ---
Date of Consultation: 05/29/2020 Reason For Consultation: Chest pain. History Of Present Illness: Mr. Ospina is an 79-year-old male who had a history of stent in 2013 in the LAD. In 2016, catheterization showed patent stent by Dr. Chew. Has not showed up for followup while in the office. Has a history of hypertension, dyslipidemia, hypothyroidism. He is allergic t o iodine. The patient came in with substernal chest pressure radiating to both arms with exertion wi th some diaphoresis and shortness of breath. No nausea or vomiting. Denied PND, orthopnea, pedal ed silviano, palpitations, or syncope. UT has been ruled out. Allergies: IODINE. Review of Systems: Negative. Social History: Negative. Family History: Negative. Medications: At home include aspirin, metoprolol, Norvasc, Synthroid, Lipitor, lisinopril, Plavix, z yloprim. Physical Examination: Vital Signs: Stable. Afebrile. HEENT: Negative. Neck: Supple. No bruit. Chest: Clear. Cardiac: Exam revealed aortic sclerosis, murmur. No gallops or rubs. Abdomen: Benign. Extremities: Revealed no clubbing, cyanosis, or edema. Skin: Dry and intact. Pulses are present distally bilaterally. Diagnostic Data: All within normal limits. Impression And Plan: Patient with history of LAD stent x2 in 2013 with symptoms suggestive of unstab le angina. We will plan a left heart catheterization to define his coronary anatomy. The patient un derstands the risk and the benefits of the procedure and he agreed to proceed. He will receive 2 dos e with p.o. prednisone 1 at night and 1 in the morning of the catheterization. We will hold his Love nox before the catheterization. Meanwhile, continue his present regimen, which does include aspirin, metoprolol and Lipitor as well as Plavix. His other problems including hypertension and dyslipidemi a are very well controlled. We will see what the catheterization shows before making final decisions . KANG/RAFFY Voice ID: [id number] Report ID: [id number]
[2020-05-31] MEDS ORDERED: MIDAZOLAM HCL 2 MG/2 ML INJ ONE (12:59)
[2020-05-31] MEDS ORDERED: HEPARIN 5000 UNIT/ML 1 ML VIAL ONE (12:59)
[2020-05-31] MEDS ORDERED: VERAPAMIL HCL 10 MG/4 ML VIAL IV ONE (12:59)
[2020-05-31] MEDS ORDERED: HEPA 1000U/500MLS 2,000 UNIT/1,000 ML BAG IV ONE (12:59)
[2020-05-31] MEDS ORDERED: ATROPINE SULF 1 MG/10 ML SYR IV ONE (13:00)
[2020-05-31] MEDS ORDERED: FENTANYL CITR 100 MCG/2 ML ONE (13:00)
[2020-05-31] MEDS ORDERED: DIPHENHYDRAMINE 50 MG/ML VIAL ONE (13:02)
[2020-05-31] MEDS ORDERED: METHYLPREDNISOLONE 125 MG INJ ONE (13:02)
[2020-05-31 16:31] VITALS: O2SAT 98
[2020-05-31 17:22] VITALS: BP 126/58; TEMP 97.3
--- NOTE | 2020-05-31 17:54 | P.DS ---
Discharge Date: 05/31/20 Primary Care Provider: Dr. Rowe; Cardiology-Dr. Davis Disposition: ROUTINE DISCHARGE Discharge Condition: GOOD Reason for Admission: Chest pain, shortness of breath Brief History of Present Illness: Patient is an 79-year-old male with history of CAD, hypertension, hypothyroidism, hyperlipidemia and dementia. Patient presented to the emergency room with chest pain. Chest pain occurred twice this morning. Each lasted several min. It was mainly to the substernal region. He describes the chest pain more of a pressure-like sensation. No radiation pain noted. He had some shortness of breath. He came to the ER for further evaluation. In the ER patient evaluated. No significant ST changes noted. CBC unremarkable. Sodium 142, potassium 4.4. BUN is 16, GFR 64. Glucose 110. Troponin unremarkable. Due to his multiple risk factors the patient was admitted for further evaluation and treatment. When I saw the patient ER, he appeared stable. Patient denies any tobacco history. Drinks on occasion. Hospital Course: She had a cardiac catheterization which revealed multiple vessel disease. There was no significant obstructive lesion and needed intervention immediately. Clinically, patient is doing better and is stable for discharge home with outpatient follow up. Patient is to return to the emergency room if symptoms worsen. Otherwise follow with cardiology in 2 weeks. Follow up with PCP in 1-2 weeks. Continue with antiplatelet therapy and statin therapy. Continue with strict blood pressure control. Vital Signs/Physical Exam: Temp Pulse Resp BP Pulse Ox 97.3 F 61 16 126/58 L 95 05/31/20 17:21 05/31/20 17:21 05/31/20 17:21 05/31/20 17:21 05/31/20 17:21 General: Alert, In no apparent distress, Oriented x3 Laboratory Data at Discharge: WBC 5.0 K/uL (4.3-10.9) 05/29/20 12:34 Hgb 13.6 g/dL (13.6-17.9) 05/29/20 12:34 Hct 41.3 % (39.6-49.0) 05/29/20 12:34 Plt Count 188 K/uL (152-406) 05/29/20 12:34 PT 11.4 SECONDS (9.5-12.5) 05/29/20 12:34 INR 0.97 05/29/20 12:34 Sodium 143 mmol/L (136-145) 05/30/20 05:19 Potassium 4.0 mmol/L (3.5-5.1) 05/30/20 05:19 BUN 17 mg/dL (7-18) 05/30/20 05:19 Creatinine 1.07 mg/dL (0.55-1.3) 05/30/20 05:19 Glucose 95 mg/dL (74-106) 05/30/20 05:19 Magnesium 2.2 mg/dL (1.8-2.4) 05/30/20 05:19 Troponin I < 0.02 ng/mL (0.0-0.045) 05/30/20 03:36 Triglycerides 65 mg/dL (<150) 05/30/20 05:19 Cholesterol 94 mg/dL (<200) 05/30/20 05:19 HDL Cholesterol 54 mg/dL (40-60) 05/30/20 05:19 Cholesterol/HDL Ratio 1.74 05/30/20 05:19 Home Medications: Aspirin Chewable [Aspirin Chewable*] 81 mg PO DAILY 07/25/15 Atorvastatin Calcium [Lipitor] 40 mg PO DAILY 07/25/15 Clopidogrel Bisulfate [Plavix*] 75 mg PO DAILY 07/25/15 Folic Acid 800 mcg PO DAILY 07/25/15 Latanoprost Ophth [Xalatan 0.005%*] 1 drops OPTH DAILY 07/25/15 Levothyroxine [Synthroid*] 112 mcg PO [id number] 07/25/15 Metoprolol Tartrate [Lopressor*] 25 mg PO DAILY 07/25/15 [place]-3 Fatty Acids [Fish Oil] 500 mg PO DAILY 07/25/15 Primidone [Mysoline *] 50 mg PO BID 07/25/15 Timolol Maleate [Istalol] 1 drop EACH EYE DAILY 07/25/15 Ubidecarenone [Co Q-10] 400 mg PO DAILY 07/25/15 allopurinoL [Zyloprim*] 300 mg PO DAILY 07/25/15 lisinopriL [Prinivil*] 20 mg PO DAILY 07/25/15 Ascorbic Acid [Vitamin C] 1,000 mg PO DAILY 05/29/20 Cholecalciferol (Vitamin D3) [Vitamin D3] 5,000 iu PO DAILY 05/29/20 Cyanocobalamin (Vitamin B-12) [Vitamin B-12] 1,000 mcg PO DAILY 05/29/20 Donepezil [Aricept*] 5 mg PO DAILY 05/29/20 Escitalopram [Lexapro*] 10 mg PO DAILY 05/29/20 Vitamin E Acid Succinate [Vitamin E] 180 mg PO DAILY 05/29/20 Nitroglycerin [Nitrostat] 0.4 mg SL Q5M #100 tab 06/03/20 Nitroglycerin [Nitrostat] 0.4 mg SL Q5M #100 tab 06/03/20 New Medications: Nitroglycerin [Nitrostat] 0.4 mg SL Q5M #100 tab Nitroglycerin [Nitrostat] 0.4 mg SL Q5M #100 tab Patient Discharge Instructions: OK TO DC IV AND DC HOME. FOLLOW-UP WITH PRIMARY CARE PROVIDER IN 1-2 WEEKS. FOLLOW-UP WITH CARDIOLOGY IN 1-2 WEEKS. RETURN TO THE ER IF symptoms worsen. CALL or TEXT DR. RODRIGUEZ AT [phone] IF ANY QUESTIONS REGARDING HOSPITAL STAY. PLEASE CALL THE FLOOR AT [phone] IF ANY MEDICATION OR NURSING QUESTIONS. Diet: AHA Activity: Fall precautions Followup: Daniel Davis MD [ACTIVE - CAN ADMIT] - Venancio Rowe MD [Primary Care Provider] - Time spent managing pt's care (in minutes): 35
--- NOTE | 2020-06-01 01:15 | OP ---
Date of Procedure: 05/31/2020 Surgeon: WASHINGTON MULTANI Procedure Performed: Selective coronary angiogram. Indication: Unstable angina. Access: Right radial artery 6-[place] closed with TR band. Complications: None. Bleeding: Less than 5 mL. Anesthesia: Total sedation time was 15 minutes. Description Of Procedure: After risks, benefits, and alternatives were explained, the patient agreed to the procedure and signed informed consent. The patient was brought into the cardiac catheterizat ion laboratory and we prepped and draped in usual sterile fashion and used fentanyl, Versed, and also prepped with Solu-Medrol and Benadryl for iodine allergy and then achieved adequate moderate sedatio n. Then, we used a pediatric micropuncture kit to access right radial artery and placed a 6-[place] s lender sheath into a 5-[place] catheter into the aortic root, engaged left main and right fishman ry artery and took standard views and removed the catheter and the wire and the sheath and placed TR band with good hemostasis. Findings: 1.Left main is large and normal. 2.LAD with a proximal 20% to 30% disease, nonobstructive and in the midportion has a stent that is p atent and distally has mild, 10% to 20% disease. 3.Left circumflex is a relatively large vessel with a mid 30% stenosis. 4.RCA is dominant circulation with diffuse 10% to 20% stenosis. Impression: Mild nonobstructive coronary artery disease. Recommendation: Medical management. SR/MODL Voice ID: [id number] Report ID: [id number]
== END 2020-05-31 18:44 | disposition home or self-care (01) | DRG 287 ==
LOC: ER 11:51 → ERHOLD 14:33 → OBSVTOIN 14:33 → 2ND 16:33
PROVIDERS: ADMIT Family Medicine; ATTEND Hospitalist
PROC: 4A023N7 Measurement of Cardiac Sampling and Pressure, Left Heart, Percutaneous Approach (ICD-10-PCS; principal; 2020-05-31)
PROC: B2111ZZ Fluoroscopy of Multiple Coronary Arteries using Low Osmolar Contrast (ICD-10-PCS; 2020-05-31)
DX: I25.110 Atherosclerotic heart disease of native coronary artery with unstable angina pectoris (principal); I10 Essential (primary) hypertension; E78.5 Hyperlipidemia, unspecified; F03.90 Unspecified dementia, unspecified severity, without behavioral disturbance, psychotic disturbance, mood disturbance, and anxiety; F41.8 Other specified anxiety disorders; E03.9 Hypothyroidism, unspecified; I25.2 Old myocardial infarction; Z88.5 Allergy status to narcotic agent; Z88.8 Allergy status to other drugs, medicaments and biological substances; Z79.890 Hormone replacement therapy; Z79.82 Long term (current) use of aspirin; Z79.899 Other long term (current) drug therapy; Z95.5 Presence of coronary angioplasty implant and graft; Z79.02 Long term (current) use of antithrombotics/antiplatelets; Z20.828 Contact with and (suspected) exposure to other viral communicable diseases
CPT/HCPCS: 36415; 71045; 80048; 80061; 82550; 82553; 83735; 83880; 84439; 84443; 84484; 85025; 85610; 93005; 93454; 99285; C1893; J1200; J1644; J1650; J2250; J2930; J3010; J7040; J7512; U0002

== ENCOUNTER 2021-06-08 13:04 | Emergency (ER) | payer OTHER, MEDICARE ==
[2021-06-08 14:02] LABS: Urine Blood 2+ (Negative); Urine Glucose Negative (Negative); Urine Protein Negative (Negative); Urine Specific Gravity 1.025 (1.005-1.030)
[2021-06-08 14:56] LABS: Absolute Lymphocytes (CBC) 2.1 K/uL (0.7-4.9); Basophils % 0.8 % (0-1.3); Hematocrit 45.6 % (39.6-49.0); Lymphocytes % 29.6 % (15.3-44.8); MPV 8.9 fL (7.6-11.3); RBC Red Blood Cell Count 4.77 M/uL (4.33-5.43)
[2021-06-08 14:56] LABS: Urine Bacteria <20 /HPF (NONE SEEN)
--- NOTE | 2021-06-08 15:09 | RAD REPORT ---
EXAM DESCRIPTION: CT - Stone Protocol - 06/08/2021 3:00 pm CLINICAL HISTORY: Flank pain. flank pain, hematuria COMPARISON: Abdomen Pelvis W/Wo Contrast dated 04/21/2019 TECHNIQUE: Axial images were obtained without oral or IV contrast. Lack of contrast limits solid org an and vascular assessment. The [id number] spans the entirety of the system partially obscuring uppermost abdomen and lung bases. Coronal reformatted images were obtained and reviewed. All CT scans are performed using dose optimization technique as appropriate and may include automated exposure control or mA/KV adjustment according to patient size. FINDINGS: The lower lung pace are clear. Imaged portions of the liver and spleen show no suspicious findings on non-contrast imaging. The panc reas and adrenal glands are normal. No pathologic lymphadenopathy in the abdomen or pelvis. A 3 mm calculus is present in the midpole left kidney posteriorly. No additional calculus seen in eit her kidney. No significant hydronephrosis. Prostate gland is quite prominent in size. No bowel obstruction, free air, free fluid or abscess. Appendectomy.Aortoiliac atherosclerosis. Fat c ontaining inguinal hernias bilaterally, greater on the right. Mild lumbar degenerative changes are present. IMPRESSION: 3 mm stone mid pole left kidney without hydronephrosis. Significant prostatomegaly.
[2021-06-08 15:31] LABS: Albumin 3.9 g/dL (3.4-5.0); Bilirubin Direct 0.2 mg/dL (0-0.2); Bilirubin Total 0.5 mg/dL (0.2-1.0); Potassium 4.5 mmol/L (3.5-5.1); Protein, Total 7.9 g/dL (6.4-8.2)
--- NOTE | 2021-06-08 15:58 | ER ---
Nurse's Notes [facility] Name: Porfirio Ospina Age: 80 yrs Sex: Male : 1940 Arrival Date: 06/08/2021 Time: 13:07 Bed 5 Private MD: Vielka Mason C Diagnosis: Hematuria, unspecified Presentation: 06/08 13:34 Chief complaint: Patient states: I have right flank pain and I am passing bright red ld1 blood in my urine. Coronavirus screen: At this time, the client does not indicate any symptoms associated with coronavirus-19. Ebola Screen: No symptoms or risks identified at this time. Initial Sepsis Screen: Does the patient meet any 2 criteria? No. Patient's initial sepsis screen is negative. Does the patient have a suspected source of infection? No. Patient's initial sepsis screen is negative. Risk Assessment: Do you want to hurt yourself or someone else? Patient reports no desire to harm self or others. Onset of symptoms was June 08, 2021. 13:34 Method Of Arrival: Ambulatory ld1 14:30 Acuity: DAMON 3 tw2 Triage Assessment: 13:36 General: Appears in no apparent distress. comfortable, Behavior is calm, cooperative, ld1 appropriate for age. Pain: Denies pain. EENT: No signs and/or symptoms were reported regarding the EENT system. Neuro: Level of Consciousness is awake, alert, obeys commands, Oriented to person, place, time. Cardiovascular: Capillary refill < 3 seconds Patient's skin is warm and dry. Respiratory: Airway is patent Respiratory effort is even, unlabored, Respiratory pattern is regular, symmetrical. GI: Abdomen is flat, non-distended. : Urine is gay blood, Reports urgency, urinary frequency, blood in urine. Derm: No signs and/or symptoms reported regarding the dermatologic system. Musculoskeletal: Reports pain in right low back. Historical: - Allergies: 13:36 Iodine; ld1 13:36 tramadol; ld1 - Home Meds: 13:36 allopurinol 300 mg Oral tab 1 tab once daily [Active]; aspirin 81 mg Oral TbEC 1 tab ld1 once daily [Active]; atorvastatin 40 mg Oral tab 1 tab once daily [Active]; clopidogrel 75 mg Oral tab 1 tab once daily [Active]; donepezil 5 mg Oral TbDL 1 tab once daily [Active]; escitalopram oxalate 10 mg Oral tab 1 tab once daily [Active]; levothyroxine 112 mcg tab 1 tab once daily [Active]; lisinopril 20 mg Oral tab 1 tab once daily [Active]; metoprolol tartrate 25 mg Oral tab 1 tab once daily [Active]; primidone 50 mg Oral tab [Active]; MemorAll oral [Active]; - PMHx: 13:36 Myocardial infarction; ld1 - Immunization history:: Adult Immunizations up to date, Client reports receiving the 2nd dose of the Covid vaccine. - Social history:: Smoking status: Patient denies any tobacco usage or history of. Patient uses alcohol, on a daily basis. Screenin:59 Abuse screen: Denies threats or abuse. Nutritional screening: No deficits noted. tw2 Tuberculosis screening: No symptoms or risk factors identified. Fall Risk None identified. Assessment: 14:25 General: Appears in no apparent distress. well groomed, Behavior is calm, cooperative, tw2 appropriate for age. Pain: Complains of pain in right low back. Neuro: Level of Consciousness is awake, alert, obeys commands, Oriented to person, place, time, situation. Cardiovascular: Patient's skin is warm and dry. Respiratory: Airway is patent Respiratory effort is even, unlabored, Respiratory pattern is regular, symmetrical. GI:. : Reports bright red blood in urine. : Reports right flank pain. Musculoskeletal: Range of motion: intact in all extremities. 15:33 Reassessment: No changes from previously documented assessment. Patient and/or family jh6 updated on plan of care and expected duration. Pain level reassessed. Patient denies pain at this time. Vital Signs: 13:34 BP 142 / 76; Pulse 65; Resp 18; Temp 97.8(O); Pulse Ox 98% on R/A; Weight 93.89 kg; ld1 Height 5 ft. 11 in. (180.34 cm); Pain 0/10; 15:33 BP 136 / 77; Pulse 66; Resp 17; Temp 97.8(O); Pulse Ox 100% ; Pain 0/10; jh6 13:34 Body Mass Index 28.87 (93.89 kg, 180.34 cm) ld1 ED Course: 13:07 Patient arrived in ED. mr 13:07 Vielka Mason MD is Private Physician. mr 13:36 Arm band placed on right wrist. ld1 14:01 Urine Culture Sent. ld1 14:01 Urine Microscopic Only Sent. ld1 14:30 Bed in low position. Call light in reach. Adult w/ patient. Pulse ox on. NIBP on. tw2 14:31 Urine Culture Sent. ld1 14:31 Urine Microscopic Only Sent. ld1 14:33 Soto Lees PA is PHCP. [facility] 14:33 Rigo Neely MD is Attending Physician. jmm 14:41 Moniac Shin, RN is Primary Nurse. tw2 14:51 Inserted saline lock: 18 gauge in right antecubital area, using aseptic technique. tp1 Blood collected. 14:59 Triage completed. tw2 15:00 CT Stone Protocol In Process Unspecified. EDMS 15:56 Jordin Bray MD is Referral Physician. [facility] 16:26 No provider procedures requiring assistance completed. IV discontinued, intact, jh6 bleeding controlled, No redness/swelling at site. Pressure dressing applied. Administered Medications: No medications were administered Outcome: 15:57 Discharge ordered by . [facility] 16:26 Discharged to home ambulatory. [facility] 16:26 Condition: stable 16:26 Discharge instructions given to patient, Instructed on discharge instructions, Demonstrated understanding of instructions, follow-up care. 16:27 Patient left the ED. [facility] Signatures: Dispatcher [employer] EDMS Soto Lees PA PA deysi Jalen Liyah Monica Shin, RN RN tw2 Jerica Alvarez RN RN ld1 Lauren Starkey RN RN 6 Shanta Triana 1
--- NOTE | 2021-06-08 15:58 | EDPHYS ---
Physician Documentation [facility] Name: Porfirio Ospina Age: 80 yrs Sex: Male : 1940 Arrival Date: 06/08/2021 Time: 13:07 Bed 5 Private MD: Vielka Mason C ED Physician Rigo Neely HPI: 06/08 13:32 This 80 yrs old Male presents to ER via Ambulatory with complaints of Urinary Problem. jmm 13:32 Onset: The symptoms/episode began/occurred gradually, 3 week(s) ago. Modifying factors: jmm The symptoms are alleviated by nothing, the symptoms are aggravated by nothing. Associated signs and symptoms: Pertinent positives: hematuria. This is an 80-year-old male with history of UT that presents the emergency department with complaints of blood in his urine for approximately 3 weeks with a mild dull ache on the right lower quadrant of his abdomen extending into the suprapubic region. Patient denies fever, vomiting, diarrhea. Patient states he has had kidney stones in the past.. Historical: - Allergies: 13:36 Iodine; ld1 13:36 tramadol; ld1 - Home Meds: 13:36 allopurinol 300 mg Oral tab 1 tab once daily [Active]; aspirin 81 mg Oral TbEC 1 tab ld1 once daily [Active]; atorvastatin 40 mg Oral tab 1 tab once daily [Active]; clopidogrel 75 mg Oral tab 1 tab once daily [Active]; donepezil 5 mg Oral TbDL 1 tab once daily [Active]; escitalopram oxalate 10 mg Oral tab 1 tab once daily [Active]; levothyroxine 112 mcg tab 1 tab once daily [Active]; lisinopril 20 mg Oral tab 1 tab once daily [Active]; metoprolol tartrate 25 mg Oral tab 1 tab once daily [Active]; primidone 50 mg Oral tab [Active]; MemorAll oral [Active]; - PMHx: 13:36 Myocardial infarction; ld1 - Immunization history:: Adult Immunizations up to date, Client reports receiving the 2nd dose of the Covid vaccine. - Social history:: Smoking status: Patient denies any tobacco usage or history of. Patient uses alcohol, on a daily basis. ROS: 13:32 Constitutional: Negative for fever, chills, and weight loss, Cardiovascular: Negative jmm for chest pain, palpitations, and edema, Respiratory: Negative for shortness of breath, cough, wheezing, and pleuritic chest pain. 13:32 Abdomen/GI: Positive for abdominal pain. 13:32 : Positive for hematuria. 13:32 All other systems are negative. Exam: 13:32 Constitutional: This is a well developed, well nourished patient who is awake, alert, jmm and in no acute distress. Head/Face: atraumatic. Eyes: EOMI, no conjunctival erythema appreciated ENT: Moist Mucus Membranes Neck: Trachea midline, Supple Chest/axilla: Normal chest wall appearance and motion. Cardiovascular: Regular rate and rhythm. No edema appreciated Respiratory: Normal respirations, no respiratory distress appreciated Abdomen/GI: Non distended, soft Back: Normal ROM Skin: General appearance color normal MS/ Extremity: Moves all extremities, no obvious deformities appreciated, no edema noted to the lower extremities Neuro: Awake and alert, normal gait Psych: Behavior is normal, Mood is normal, Patient is cooperative and pleasant Vital Signs: 13:34 BP 142 / 76; Pulse 65; Resp 18; Temp 97.8(O); Pulse Ox 98% on R/A; Weight 93.89 kg; ld1 Height 5 ft. 11 in. (180.34 cm); Pain 0/10; 15:33 BP 136 / 77; Pulse 66; Resp 17; Temp 97.8(O); Pulse Ox 100% ; Pain 0/10; jh6 13:34 Body Mass Index 28.87 (93.89 kg, 180.34 cm) ld1 MDM: 15:12 Patient medically screened. [facility] 15:55 Data reviewed: vital signs, nurses notes. Counseling: I had a detailed discussion with [facility] the patient and/or guardian regarding: the historical points, exam findings, and any diagnostic results supporting the discharge/admit diagnosis, lab results, radiology results, the need for outpatient follow up, to return to the emergency department if symptoms worsen or persist or if there are any questions or concerns that arise at home. ED course: Patient patient is alert and nontoxic in appearance in the ED. CT is negative for an acute finding that would explain the patient's pain. Labs unremarkable except for UA which reveals RBCs. Patient advised to follow-up with urology for further evaluation for the possibility of cancer. Patient otherwise given strict return precautions for weakness, vomiting or worsening pain, etc. Patient understood and agrees plan of care. 06/08 13:32 Order name: Urine Culture [facility] 06/08 13:32 Order name: Urine Microscopic Only; Complete Time: 15:12 [facility] 06/08 14:02 Order name: Urine Dipstick-Ancillary; Complete Time: 14:33 [facility] 06/08 14:34 Order name: Basic Metabolic Panel; Complete Time: 15:36 [facility] 06/08 14:34 Order name: CBC with Diff; Complete Time: 15:12 [facility] 06/08 14:34 Order name: Hepatic Function; Complete Time: 15:36 [facility] 06/08 13:32 Order name: Urine Dipstick-Ancillary (obtain specimen); Complete Time: 14:01 [facility] 06/08 14:34 Order name: Lipase; Complete Time: 15:36 [facility] 06/08 14:34 Order name: IV Saline Lock; Complete Time: 14:54 [facility] 06/08 14:34 Order name: Labs collected and sent; Complete Time: 14:54 [facility] 06/08 14:34 Order name: CT Stone Protocol; Complete Time: 15:12 [facility] Administered Medications: No medications were administered Disposition: 17:35 Co-signature as Attending Physician, Rigo Neely MD I agree with the assessment and rn plan of care. Attestation: The patient's history, exam findings, diagnostics, and a summary of any interventions or procedures was reviewed in detail with Soto P[facility]. Disposition Summary: 06/08/21 15:57 Discharge Ordered Location: Home [facility] Condition: Stable [facility] Diagnosis - Hematuria, unspecified m Followup: [facility] - With: Jordin Bray MD - When: 2 - 3 days - Reason: Recheck today's complaints, Continuance of care, Re-evaluation by your physician Discharge Instructions: - Discharge Summary Sheet jm - Hematuria, Adult jmm Forms: - Medication Reconciliation Form [facility] - Thank You Letter [facility] - Antibiotic Education m - Prescription Opioid Use [facility] Signatures: Dispatcher [employer] Soto Rachel PA PA jmm Nieto, Roman, MD MD rn Jerica Alvarez RN RN ld1
[2021-06-08 16:31] VITALS: TEMP 97.8
[2021-06-08 16:33] VITALS: BP 136/77; O2SAT 100
== END 2021-06-08 16:27 | disposition home or self-care (01) ==
LOC: ER 13:04
DX: R31.9 Hematuria, unspecified (principal); Z87.442 Personal history of urinary calculi; I25.2 Old myocardial infarction; Z88.5 Allergy status to narcotic agent; Z91.048 Other nonmedicinal substance allergy status; Z79.82 Long term (current) use of aspirin
CPT/HCPCS: 36415; 74176; 76377; 80048; 80076; 81003; 81015; 83690; 85025; 87086; 87088; 99284

== ENCOUNTER 2021-09-16 10:17 | Emergency (ER) | payer OTHER, MEDICARE ==
--- NOTE | 2021-09-16 11:09 | RAD REPORT ---
EXAM DESCRIPTION: CTChest Abd Pelvis Wo Con - 09/16/2021 11:01 am CLINICAL HISTORY: Abdominal distention;Cough COMPARISON: No comparisons TECHNIQUE: CT of the chest, abdomen, and pelvis was performed. All CT scans are performed using dose optimization technique as appropriate and may include automated exposure control or mA/KV adjustment according to patient size. FINDINGS: Thorax: Chest Wall: No abnormal mass Lungs: No acute abnormality. Pleura: No effusions or pneumothorax. Desire/Mediastinum: No lymphadenopathy. Aorta/Pulmonary Arteries: Unremarkable Heart: Normal size. Multi-vessel coronary artery disease. Abdomen/Pelvis: Liver: No acute abnormality or suspicious lesions. Biliary: No biliary ductal dilatation. Stomach: No significant focal abnormality. Duodenum: No significant focal abnormality. Pancreas: No significant abnormality. Spleen: No significant abnormality. Adrenal: No suspicious lesions. Kidney/ureter: No hydronephrosis. No renal calculi. Retroperitoneum: No retroperitoneal adenopathy. Vascular: No aneurysm. Bowel: Mild sigmoid and rectal wall thickening. No bowel obstruction. Normal appendix.. Peritoneum: No ascites or free air. Bladder: Grossly unremarkable. Reproductive: Moderate prostatomegaly. Bones: No acute fracture. Other: n/a IMPRESSION: 1. Mild sigmoid and rectal wall thickening could indicate a mild colitis. No bowel obstr uction. Normal appendix. 2. No acute findings within the chest.
[2021-09-16] MEDS ORDERED: CEFTRIAXONE 1000 MG/VIAL ONE (11:35)
[2021-09-16] MEDS ORDERED: NA CHLORIDE 0.9% 50 ML ONE (11:35)
[2021-09-16 11:36] LABS: Absolute Lymphocytes (CBC) 0.6 K/uL (0.7-4.9); Hematocrit 41.5 % (39.6-49.0); Lymphocytes % 15.6 % (15.3-44.8); MPV 8.9 fL (7.6-11.3); RBC Red Blood Cell Count 4.35 M/uL (4.33-5.43)
--- NOTE | 2021-09-16 11:39 | RAD REPORT ---
EXAM DESCRIPTION: RAD - Chest Single View - 09/16/2021 11:26 am CLINICAL HISTORY: COUGH COMPARISON: Chest Single View dated 05/29/2020; Chest Single View dated 12/24/2015; CHEST SINGLE VIEW dated 07/25/2015; ABDOMEN 1 VIEW KUB dated 01/07/2015 FINDINGS: Lines: None. Lungs: No evidence of edema or pneumonia. Pleural: No significant pleural effusions or pneumothorax. Cardiac: The heart size is within normal limits. Bones: No acute fractures. Other: IMPRESSION: No acute cardiopulmonary disease.
[2021-09-16] MEDS ORDERED: NA CHLORIDE 0.9% 1,000 ML ONE (11:44)
[2021-09-16 11:46] LABS: Protime INR 1.03
[2021-09-16 11:59] LABS: Albumin 3.3 g/dL (3.4-5.0); Bilirubin Direct 0.2 mg/dL (0-0.2); Bilirubin Total 0.5 mg/dL (0.2-1.0); Magnesium 2.2 mg/dL (1.8-2.4); Potassium 3.7 mmol/L (3.5-5.1); Protein, Total 6.8 g/dL (6.4-8.2); Troponin High Sensitivity 7.5 pg/mL (<58.9)
--- NOTE | 2021-09-16 13:01 | EDPHYS ---
Physician Documentation [facility] Name: Porfirio Ospina Age: 81 yrs Sex: Male : 1940 Arrival Date: 09/16/2021 Time: 10:17 Bed 8 Private MD: Vielka Mason C ED Physician Cliff Burgos HPI: 09/16 12:55 This 81 yrs old Male presents to ER via Ambulatory with complaints of david Diarrhea, Fever. 12:55 The patient presents to the emergency department with diarrhea, 5 times since the onset david of symptoms. Onset: The symptoms/episode began/occurred 1 day(s) ago. Possible causes: unknown. The symptoms are aggravated by nothing. The symptoms are alleviated by nothing. Associated signs and symptoms: The patient has no apparent associated signs or symptoms. Severity of symptoms: At their worst the symptoms were mild in the emergency department the symptoms have resolved. The patient has not experienced similar symptoms in the past. Historical: - Allergies: 10:30 tramadol; ww 10:30 Iodine; ww - PMHx: 10:30 Myocardial infarction; Hypertensive disorder; Dementia; ww - Immunization history:: Adult Immunizations up to date. - Social history:: Smoking status: Patient denies any tobacco usage or history of. ROS: 12:56 Constitutional: Negative for fever, chills, and weight loss, Eyes: Negative for injury, david pain, redness, and discharge, ENT: Negative for injury, pain, and discharge, Neck: Negative for injury, pain, and swelling, Cardiovascular: Negative for chest pain, palpitations, and edema, Respiratory: Negative for shortness of breath, cough, wheezing, and pleuritic chest pain, Back: Negative for injury and pain, : Negative for injury, bleeding, discharge, and swelling, MS/Extremity: Negative for injury and deformity, Skin: Negative for injury, rash, and discoloration, Neuro: Negative for headache, weakness, numbness, tingling, and seizure, Psych: Negative for depression, anxiety, suicide ideation, homicidal ideation, and hallucinations, Allergy/Immunology: Negative for hives, rash, and allergies, Endocrine: Negative for neck swelling, polydipsia, polyuria, polyphagia, and marked weight changes, Hematologic/Lymphatic: Negative for swollen nodes, abnormal bleeding, and unusual bruising. 12:56 Respiratory: 12:56 Abdomen/GI: Positive for diarrhea. Exam: 12:56 Constitutional: This is a well developed, well nourished patient who is awake, alert, dvaid and in no acute distress. Head/Face: Normocephalic, atraumatic. Eyes: Pupils equal round and reactive to light, extra-ocular motions intact. Lids and lashes normal. Conjunctiva and sclera are non-icteric and not injected. Cornea within normal limits. Periorbital areas with no swelling, redness, or edema. ENT: Nares patent. No nasal discharge, no septal abnormalities noted. Tympanic membranes are normal and external auditory canals are clear. Oropharynx with no redness, swelling, or masses, exudates, or evidence of obstruction, uvula midline. Mucous membranes moist. Neck: Trachea midline, no thyromegaly or masses palpated, and no cervical lymphadenopathy. Supple, full range of motion without nuchal rigidity, or vertebral point tenderness. No Meningismus. Chest/axilla: Normal chest wall appearance and motion. Nontender with no deformity. No lesions are appreciated. Cardiovascular: Regular rate and rhythm with a normal S1 and S2. No gallops, murmurs, or rubs. Normal PMI, no JVD. No pulse deficits. Respiratory: Lungs have equal breath sounds bilaterally, clear to auscultation and percussion. No rales, rhonchi or wheezes noted. No increased work of breathing, no retractions or nasal flaring. Abdomen/GI: Soft, non-tender, with normal bowel sounds. No distension or tympany. No guarding or rebound. No evidence of tenderness throughout. Back: No spinal tenderness. No costovertebral tenderness. Full range of motion. Male : Normal genitalia with no discharge or lesions. Skin: Warm, dry with normal turgor. Normal color with no rashes, no lesions, and no evidence of cellulitis. MS/ Extremity: Pulses equal, no cyanosis. Neurovascular intact. Full, normal range of motion. Neuro: Awake and alert, GCS 15, oriented to person, place, time, and situation. Cranial nerves II-XII grossly intact. Motor strength 5/5 in all extremities. Sensory grossly intact. Cerebellar exam normal. Normal gait. Psych: Awake, alert, with orientation to person, place and time. Behavior, mood, and affect are within normal limits. 13:06 ECG was reviewed by the Attending Physician. [facility] Vital Signs: 10:29 BP 121 / 72; Pulse 62; Resp 18; Temp 97.9; Pulse Ox 96% on R/A; Weight 93.89 kg; Height ww 6 ft. 0 in. (182.88 cm); Pain 0/10; 11:28 BP 121 / 70; Pulse 62; Resp 18; Temp 98.4; Pulse Ox 96% ; Pain 3/10; jh6 12:30 BP 121 / 77; Pulse 58; Resp 20; Pulse Ox 96% ; Pain 2/10; jh6 13:30 BP 145 / 72; Pulse 60; Resp 18; Pulse Ox 100% ; Pain 2/10; jh6 14:30 BP 127 / 69; Pulse 62; Resp 18; Temp 97.6(O); Pulse Ox 98% ; Pain 0/10; jh6 10:29 Body Mass Index 28.07 (93.89 kg, 182.88 cm) MDM: 10:33 [facility] 12:57 Differential diagnosis: Nonspecific abd pain, gastritis, cholecystitis, pancreatitis, david appendicitis, diverticulitis, viral gastroenteritis, gastroenteritis, viral Infection, bacterial infection, gastroenteritis. Data reviewed: vital signs, nurses notes, lab test result(s), EKG, radiologic studies, CT scan, plain films. Data interpreted: electronic device monitor: rate is 62 beats/min, rhythm is regular, Pulse oximetry: is not applicable for this patient encounter. on. Test interpretation: by ED physician or midlevel provider: ECG, plain radiologic studies. Counseling: I had a detailed discussion with the patient and/or guardian regarding: the historical points, exam findings, and any diagnostic results supporting the discharge/admit diagnosis, lab results, radiology results. 09/16 10:37 Order name: Basic Metabolic Panel [facility] 09/16 10:37 Order name: CBC with Diff; Complete Time: 12:58 [facility] 09/16 10:37 Order name: LFT's; Complete Time: 12:58 [facility] 09/16 10:37 Order name: Magnesium; Complete Time: 12:58 [facility] 09/16 10:37 Order name: NT PRO-BNP; Complete Time: 12:58 [facility] 09/16 10:37 Order name: PT-INR; Complete Time: 12:58 [facility] 09/16 10:37 Order name: Troponin HS; Complete Time: 12:58 09/16 10:37 Order name: Lipase; Complete Time: 12:58 09/16 10:37 Order name: Urine Culture 09/16 10:37 Order name: Blood Culture Adult (2) 09/16 10:37 Order name: Lactate; Complete Time: 12:58 09/16 10:37 Order name: Procalcitonin; Complete Time: 12:58 09/16 10:37 Order name: COVID-19/FLU A+B/RSV (Document "Date of Onset" if Symptomatic) 09/16 10:37 Order name: Fecal Leukocyte Stain 09/16 10:37 Order name: XRAY Chest (1 view); Complete Time: 12:58 09/16 10:37 Order name: EKG; Complete Time: 10:38 09/16 10:37 Order name: Cardiac monitoring; Complete Time: 12:05 09/16 10:37 Order name: EKG - Nurse/Tech; Complete Time: 12:05 09/16 10:37 Order name: IV Saline Lock; Complete Time: 12:05 09/16 10:37 Order name: Labs collected and sent; Complete Time: 12:05 09/16 10:37 Order name: O2 Per Protocol; Complete Time: 12:05 09/16 10:37 Order name: O2 Sat Monitoring; Complete Time: 12:05 09/16 10:37 Order name: CT Chest Abdomen Pelvis W/O Contrast; Complete Time: 12:58 09/16 10:37 Order name: Occult Blood 09/16 10:37 Order name: Stool Culture 09/16 10:37 Order name: Basic Metabolic Panel; Complete Time: 12:58 EDMS EC:06 Rate is 60 beats/min. Rhythm is regular. QRS [place] is Normal. AR interval is normal. QRS david interval is normal. QT interval is normal. No Q waves. T waves are Normal. No ST changes noted. Clinical impression: Normal ECG and No evidence of ischemia. Interpreted by me. Reviewed by me. Administered Medications: 11:33 Drug: Rocephin (cefTRIAXone) 1 grams Route: IV; Rate: per protocol; Site: right jh6 antecubital; 11:39 Drug: NS 0.9% 1000 ml Route: IV; Rate: 125 ml/hr; Site: right antecubital; jh6 13:10 Drug: Flagyl (metroNIDAZOLE) 500 mg Volume: 100 ml; Route: IVPB; Rate: 200 ml/hr; ww Infused Over: 30 mins; Site: right antecubital; 13:10 Drug: Cipro (ciprofloxacin) 500 mg Route: PO; ww Disposition Summary: 09/16/21 13:01 Discharge Ordered [facility] Problem: new david Symptoms: have improved david Condition: Stable [facility] Diagnosis - Left sided colitis without complications david - Fever, unspecified david - Diarrhea, unspecified david - Abdominal tenderness david [facility] - With: Vielka Mason MD - When: 2 - 3 days - Reason: Recheck today's complaints, Continuance of care, Re-evaluation by your physician Discharge Instructions: - Discharge Summary Sheet david - Abdominal Pain, Adult david - Diarrhea, Adult david - Fever, Adult david - Abdominal Pain, Adult, [id number] david - Diarrhea, Adult, Frsu-me-Sisd david - Fever, Adult, Svgo-fb-Oata david - Colitis [facility] Forms: - Medication Reconciliation Form [facility] - Thank You Letter [facility] - Antibiotic Education [facility] - Prescription Opioid Use [facility] Prescriptions: - Flagyl 500 mg Oral Tablet - take 1 tablet by ORAL route 3 times per day for 7 days; 21 tablet; Refills: 0, [facility] Product Selection Permitted - Cipro 500 mg Oral Tablet - take 1 tablet by ORAL route every 12 hours for 7 days; 14 tablet; Refills: 0, [facility] Product Selection Permitted - dicyclomine 20 mg Oral Tablet - take 1 tablet by ORAL route 4 times per day; 28 tablet; Refills: 0, Product [facility] Selection Permitted Signatures: Dispatcher [employer] Cliff Rodriguez MD MD cha Hastedt, Jennifer, RN RN jh6 Jocelyne Pavon RN RN ww
--- NOTE | 2021-09-16 13:01 | ER ---
Nurse's Notes [facility] Name: Porfirio Ospina Age: 81 yrs Sex: Male : 1940 Arrival Date: 09/16/2021 Time: 10:17 Bed 8 Private MD: Vielka Mason C Diagnosis: Left sided colitis without complications;Fever, unspecified;Diarrhea, unspecified;Abdominal tenderness Presentation: 09/16 10:29 Chief complaint: Patient states: Diarrhea that started yesterday, generalized weakness, ww fever of 100.3 last night. Coronavirus screen: Vaccine status: Patient reports receiving the 2nd dose of the covid vaccine. Client denies travel out of the [place] in the last 14 days. Ebola Screen: Patient denies travel to an Ebola-affected area in the 21 days before illness onset. Initial Sepsis Screen: Does the patient meet any 2 criteria? No. Patient's initial sepsis screen is negative. Does the patient have a suspected source of infection? No. Patient's initial sepsis screen is negative. Risk Assessment: Do you want to hurt yourself or someone else? Patient reports no desire to harm self or others. Onset of symptoms was September 15, 2021. 10:29 Method Of Arrival: Ambulatory ww 10:29 Acuity: DAMON 3 ww Triage Assessment: 10:31 General: Appears in no apparent distress. Behavior is calm, cooperative. Pain: Denies ww pain. EENT: No signs and/or symptoms were reported regarding the EENT system. Neuro: Level of Consciousness is awake, alert, obeys commands, Oriented to person, place, time, situation, Speech is normal. Cardiovascular: Capillary refill < 3 seconds Patient's skin is warm and dry. Respiratory: Airway is patent Respiratory effort is even, unlabored, Respiratory pattern is regular, symmetrical. GI: Abdomen is non-distended, Reports diarrhea. Derm: Skin is intact, Skin is pink, warm \T\ dry. Historical: - Allergies: 10:30 tramadol; ww 10:30 Iodine; ww - PMHx: 10:30 Myocardial infarction; Hypertensive disorder; Dementia; ww - Immunization history:: Adult Immunizations up to date. - Social history:: Smoking status: Patient denies any tobacco usage or history of. Screenin:29 Abuse screen: Denies threats or abuse. Nutritional screening: No deficits noted. jh6 Tuberculosis screening: No symptoms or risk factors identified. Fall Risk None identified. Assessment: 11:00 General: Appears in no apparent distress. comfortable, Behavior is calm, cooperative. jh6 Pain: Complains of pain in abdomen Pain does not radiate. Pain currently is 3 out of 10 on a pain scale. 11:00 GI: Reports lower abdominal pain, upper abdominal pain, diarrhea, gaseousness. jh6 12:00 Reassessment: Patient and/or family updated on plan of care and expected duration. Pain jh6 level reassessed. Patient is alert, oriented x 3, equal unlabored respirations, skin warm/dry/pink. Patient denies pain at this time. 13:00 Reassessment: No changes from previously documented assessment. Patient and/or family jh6 updated on plan of care and expected duration. Pain level reassessed. pt resting with spouse at bedside. NAD noted and has had no episodes of loose stool. Vital Signs: 10:29 BP 121 / 72; Pulse 62; Resp 18; Temp 97.9; Pulse Ox 96% on R/A; Weight 93.89 kg; Height ww 6 ft. 0 in. (182.88 cm); Pain 0/10; 11:28 BP 121 / 70; Pulse 62; Resp 18; Temp 98.4; Pulse Ox 96% ; Pain 3/10; jh6 12:30 BP 121 / 77; Pulse 58; Resp 20; Pulse Ox 96% ; Pain 2/10; jh6 13:30 BP 145 / 72; Pulse 60; Resp 18; Pulse Ox 100% ; Pain 2/10; jh6 14:30 BP 127 / 69; Pulse 62; Resp 18; Temp 97.6(O); Pulse Ox 98% ; Pain 0/10; jh6 10:29 Body Mass Index 28.07 (93.89 kg, 182.88 cm) ww ED Course: 10:17 Patient arrived in ED. as 10:18 Vielka Mason MD is Private Physician. as 10:30 Triage completed. ww 10:31 Arm band placed on right wrist. ww 10:33 Cliff Burgos MD is Attending Physician. david 11:01 CT Chest Abdomen Pelvis W/O Contrast In Process Unspecified. EDMS 11:25 XRAY Chest (1 view) In Process Unspecified. EDMS 11:27 Lauren Starkey, RN is Primary Nurse. [facility] 11:29 Call light in reach. Side rails up X2. Adult w/ patient. [facility] 11:29 Inserted saline lock: 22 gauge in right antecubital area, using aseptic technique. [facility] 12:15 Basic Metabolic Panel Sent. 13:00 Vielka Mason MD is Referral Physician. [facility] 14:45 No provider procedures requiring assistance completed. IV discontinued, intact, [facility] bleeding controlled, No redness/swelling at site. Pressure dressing applied. Administered Medications: 11:33 Drug: Rocephin (cefTRIAXone) 1 grams Route: IV; Rate: per protocol; Site: right 6 antecubital; 11:39 Drug: NS 0.9% 1000 ml Route: IV; Rate: 125 ml/hr; Site: right antecubital; [facility] 13:10 Drug: Flagyl (metroNIDAZOLE) 500 mg Volume: 100 ml; Route: IVPB; Rate: 200 ml/hr; ww Infused Over: 30 mins; Site: right antecubital; 13:10 Drug: Cipro (ciprofloxacin) 500 mg Route: PO; ww Outcome: 13:01 Discharge ordered by . [facility] 14:45 Discharged to home ambulatory. [facility] 14:45 Condition: good 14:45 Discharge instructions given to patient, family, Instructed on discharge instructions, follow up and referral plans. Demonstrated understanding of instructions, follow-up care, medications, Prescriptions given X 3. 14:45 Patient left the ED. [facility] Signatures: Dispatcher [employer] Cliff Rodriguez MD MD cha Martinez, Amelia as Lauren Starkey, RN OLIVIA [facility] Jocelyne Pavon RN RN
[2021-09-16] MEDS ORDERED: CIPROFLOXACIN HCL 500 MG TAB ONE (13:07)
[2021-09-16] MEDS ORDERED: METRONIDAZOLE 500mg IVPB 500 MG/100 ML BAG IV ONE (13:07)
[2021-09-16 13:10] LABS: SARS-COV-2 RT PCR NEGATIVE (NEGATIVE)
[2021-09-16 14:58] VITALS: BP 127/69; TEMP 97.6; O2SAT 98
== END 2021-09-16 14:45 | disposition home or self-care (01) ==
LOC: ER 10:17
DX: K51.50 Left sided colitis without complications (principal); R50.9 Fever, unspecified; R10.819 Abdominal tenderness, unspecified site; I10 Essential (primary) hypertension; F03.90 Unspecified dementia, unspecified severity, without behavioral disturbance, psychotic disturbance, mood disturbance, and anxiety; Z20.822 Contact with and (suspected) exposure to COVID-19; Z88.5 Allergy status to narcotic agent; Z91.048 Other nonmedicinal substance allergy status
CPT/HCPCS: 93005; 87040 ×2; 87088; 85025; 87086; 80048; 36415; 83735; 85610; 80076; 83605; 84484; 83690; 84145; 83880; 0241U; 71250; 74176; 71045; 96375; 96374; 99284; J7030